=== PATIENT | male | born 2005 | race Hispanic/Latino ===

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

== ENCOUNTER 2023-08-07 09:41 | Outpatient (CLI) | payer OTHER | END 2023-08-07 09:42 | disposition home or self-care (01) | LOC: CT 09:41 | PROVIDERS: ATTEND Neurological Surgery | DX: S02.91XA Unspecified fracture of skull, initial encounter for closed fracture (principal); Z98.890 Other specified postprocedural states | CPT/HCPCS: 70450 ==